=== PATIENT | female | born 1995 | race Caucasian/White ===

== ENCOUNTER → 2016-11-08 | Day surgery (SDC) | payer BC ==
[2016-11-07 09:41] VITALS: Ht 167.6 cm; Wt 72.7 kg
[~2016-11-08] VITALS: Ht 167.6 cm; Wt 72.7 kg
[~2016-11-08] MED LIST: ALBU18002 INH; BCPILLS PO; FLUT0.15 NAE; FLVHFA110 INH; LEVO-371 PO; LIDOCAINE HCL 2% 2 ML VIAL (20MG/ML) ONE; ONDA4TAB46 PO; PROPOFOL IV EMULSION 10 MG/ML 20 ML VIAL IV ONE; QUERTAB PO; SERT50TA PO; SODIUM CHLORIDE 0.9% 500ML 500 ML IV ONE
[2016-11-08 11:14] VITALS: TEMP 37.1
--- NOTE | 2016-11-08 11:21 | Endo History and Physical ---
History & Physical Date of Service: Nov 08, 2016. Chief Complaint: Dysphagia, EOS Referring Physician: Nancie Molina History of Present Illness 21 yo CF who presents for EGD secondary to dysphagia and Eosinophilic esophagitis. Past Surgical History Hx Cardiac Surgery: No Hx Internal Defibrillator: No Hx Pacemaker: No Hx Abdominal Surgery: No Hx of Implantable Prosthesis: No Hx Post-Op Nausea and Vomiting: No Hx Cancer Surgery: No Hx Thoracic Surgery: No Hx Orthopedic: Yes (RT ACL REPAIR) Hx Urinary Tract Surgery: No Family History None Social History Smoking Status: Never Smoker Hx Substance Use: No Hx Alcohol Use: Yes (1-2X/WEEK) Allergies Coded Allergies: NO KNOWN DRUG ALLERGIES (Verified Allergy, Unknown, ., 11/07/16) Uncoded Allergies: SEASONAL (Allergy, Unknown, congestion/watery eyes, 06/23/14) Current Medications Reported Home Medications Medications Dose Route/Sig Max Daily Dose Days Date Category Flovent Hfa (Fluticasone Propionate) 120 Puffs/99359 Mcg Aero 2 Puffs INH BID 11/07/16 Reported Proair Respiclick (Albuterol Sulfate) 108 Mcg/Act Aer 2 Puffs INH Q4H PRN 08/29/16 Reported Quercetin 50 Mg Tab 1 Tab PO QAM 08/29/16 Reported Flonase Allergy Relief (Fluticasone Propionate (Nasal)) 50 Mcg/Act Spr 1 [place] JOSEPH QAM 08/29/16 Reported Control Pills (Miscellaneous) Tab 1 Tab PO QAM 06/23/14 Reported Zoloft (Sertraline Hcl) 50 Mg Tab 50 Mg PO QAM 06/23/14 Reported Xyzal (Levocetirizine Dihydrochloride) 5 Mg Tab 5 Mg PO QAM 06/23/14 Reported Vital Signs Weight (Kilograms): 72.73 Height (Feet): 5 Height (Inches): 6 Date Time Temp Pulse Resp B/P Pulse Ox O2 Delivery O2 Flow Rate FiO2 11/08/16 11:14 37.1 81 18 117/74 97 Room Air Physical Exam General Appearance: WD/WN, no apparent distress Respiratory/Chest: Auscultation: breath sounds normal Cardiovascular: Heart Auscultation: RRR Abdomen: Bowel Sounds: normal Inspection & Palpation: soft, non-distended, no tenderness, guarding & rebound Assessment and Plan Assessment: 21 yo CF who presents for EGD secondary to dysphagia and Eosinophilic esophagitis. Plan: Proceed with EGD
--- NOTE | 2016-11-08 12:02 | GI REPORT ---
Procedure Date: 11/08/2016 11:32 AM Procedure: Upper GI endoscopy Indications: Dysphagia, Follow-up of eosinophilic esophagitis Medicines: Monitored Anesthesia Care Complications: No immediate complications. Estimated Blood Loss: Estimated blood loss: none. Procedure: Pre-Anesthesia Assessment: - Prior to the procedure, a History and Physical was performed, and patient medications and allergies were reviewed. The patient's tolerance of previous anesthesia was also reviewed. The risks and benefits of the procedure and the sedation options and risks were discussed with the patient. All questions were answered, and informed consent was obtained. Prior Anticoagulants: The patient has taken no previous anticoagulant or antiplatelet agents. ASA Grade Assessment: I - A normal, healthy patient. After reviewing the risks and benefits, the patient was deemed in satisfactory condition to undergo the procedure. After obtaining informed consent, the endoscope was passed under direct vision. Throughout the procedure, the patient's blood pressure, pulse, and oxygen saturations were monitored continuously. The scope was introduced through the mouth, and advanced to the second part of duodenum. The upper GI endoscopy was accomplished without difficulty. The patient tolerated the procedure well. Findings: LA Grade B (one or more mucosal breaks greater than 5 mm, not extending between the tops of two mucosal folds) esophagitis with no bleeding was found. Biopsies were taken with a cold forceps for histology. Biopsies were taken with a cold forceps in the middle third of the esophagus for histology. The stomach was normal. The examined duodenum was normal. Impression: - LA Grade B reflux esophagitis. Biopsied. - Normal stomach. - Normal examined duodenum. - Biopsies were taken with a cold forceps for histology in the middle third of the esophagus. Recommendation: - Resume previous diet. - Continue present medications. - Await pathology results. - Return to GI clinic as previously scheduled. Navin Turcios DO 11/08/2016 12:00:58 PM This report has been signed electronically. Note Initiated On: 11/08/2016 11:32 AM I attest to the content of the Intraoperative Record and orders documented therein, exceptions below
--- NOTE | 2016-11-08 12:05 | Discharge Instructions ---
Endoscopy Patient Instructions Date / Procedure(s) Performed Nov 08, 2016. EGD Allergy Information Coded Allergies: NO KNOWN DRUG ALLERGIES (Verified Allergy, Unknown, ., 11/07/16) Uncoded Allergies: SEASONAL (Allergy, Unknown, congestion/watery eyes, 06/23/14) Discharge Date / Findings Nov 08, 2016. Reflux esophagitis s/p biopsies Mid-esophageal biopsies Medication Instructions Restart Stopped Medication(s): OK to resume all medications today as prescribed Start Lansoprazole 30mg by mouth twice daily 1/2 hour prior to breakfast and dinner. Reported Home Medications Medications Dose Route/Sig Max Daily Dose Days Date Category Flovent Hfa (Fluticasone Propionate) 120 Puffs/15543 Mcg Aero 2 Puffs INH BID 11/07/16 Reported Proair Respiclick (Albuterol Sulfate) 108 Mcg/Act Aer 2 Puffs INH Q4H PRN 08/29/16 Reported Quercetin 50 Mg Tab 1 Tab PO QAM 08/29/16 Reported Flonase Allergy Relief (Fluticasone Propionate (Nasal)) 50 Mcg/Act Spr 1 [place] JOSEPH QAM 08/29/16 Reported Control Pills (Miscellaneous) Tab 1 Tab PO QAM 06/23/14 Reported Zoloft (Sertraline Hcl) 50 Mg Tab 50 Mg PO QAM 06/23/14 Reported Xyzal (Levocetirizine Dihydrochloride) 5 Mg Tab 5 Mg PO QAM 06/23/14 Reported Provider Instructions Activity Restrictions - No exercising or heavy lifting for 24 hours. - Do not drink alcohol the day of the procedure. - Do not drive a car or operate machinery until the day after the procedure. - Do not make any important decisions or sign important papers in 24 hours after the procedure. Following Day: - Return to full activity which may include returning to work/school. Diet Start your diet with liquids and light foods (jello, soup, juice, toast). Then eat your usual diet if not nauseated. Treatment For Common After Affects For mild abdominal pain, bloating, or excessive gas: - Rest - Eat lightly - Lie on right side Follow-Up Information Follow-up with Nancie Molina as scheduled Anesthesia Information What You Should Know You have had a procedure that required some medicine to reduce anxiety and discomfort. This treatment is called moderate sedation. After receiving the treatment, you may be sleepy, but you will be able to breathe on your own. The effects of the treatment may last for several hours. Follow these instructions along with Activity/Diet recommendations noted above: * Do NOT do anything where dizziness or clumsiness would be dangerous. * Rest quietly at home today, then you can be up and about tomorrow. * Have a responsible person stay with you the rest of today. * You may have had an I.V. today. If so, you may take the dressing off later today. Recommendations Call your doctor if: * Trouble breathing * Continuous vomiting for more than 24 hours * Temperature above 101 degrees * Severe abdominal pain or bloating * Pain not relieved by pain medicine ordered * There is increased drainage or redness from any incision * A large amount of rectal bleeding greater than 2-3 tablespoons. (If you had a polyp/s removed or have hemorrhoids, a small amount of blood - from the rectum is to be expected.) * You have any unanswered questions or concerns. IN THE EVENT OF A SERIOUS EMERGENCY, GO TO THE NEAREST EMERGENCY ROOM Your discharge instructions were prepared by provider Navin Turcios. Patient Instructions Signature Page Katie Cotton Patient (or Guardian) Signature/Date: I have read and understand the instructions given to me by my caregivers. Caregiver/RN/Doctor Signature/Date: The above-named patient and/or guardian has received patient instructions on this date. + Original Patient Signature Page (only) stays with chart. Please make copy for patient.
[2016-11-08 12:25] VITALS: BP 125/87; PULSE 83; O2SAT 97
--- NOTE | 2016-11-08 12:35 | Anesthesiology Progress Note ---
Anesthesia Post Op Note Date & Time Nov 08, 2016 at 12:36 Vital Signs Pain Intensity: 0 Vital Signs Past 12 Hours Date Time Temp Pulse Resp B/P Pulse Ox O2 Delivery O2 Flow Rate FiO2 11/08/16 12:25 83 18 125/87 97 Room Air 11/08/16 12:10 74 18 118/73 97 Room Air 11/08/16 11:55 91 18 117/82 97 Room Air 11/08/16 11:14 37.1 81 18 117/74 97 Room Air Notes Mental Status: alert / awake / arousable, participated in evaluation Pt Amnestic to Procedure: Yes Nausea / Vomiting: adequately controlled Pain: adequately controlled Airway Patency, RR, SpO2: stable & adequate BP & HR: stable & adequate Hydration State: stable & adequate Anesthetic Complications: no major complications apparent
== END | disposition home or self-care (01) ==
LOC: C.GI 10:49
PROVIDERS: ATTEND Internal Medicine
DX: K21.0 Gastro-esophageal reflux disease with esophagitis (principal); K20.0 Eosinophilic esophagitis; Z98.890 Other specified postprocedural states

== ENCOUNTER 2016-11-24 12:21 | Emergency (ER) | payer BC ==
[~2016-11-24] VITALS: Ht 165.1 cm; Wt 75.2 kg
[~2016-11-24 12:21] MED LIST changes: -LIDOCAINE HCL 2% 2 ML VIAL (20MG/ML) ONE; -ONDA4TAB46 PO; -PROPOFOL IV EMULSION 10 MG/ML 20 ML VIAL IV ONE; -SODIUM CHLORIDE 0.9% 500ML 500 ML IV ONE
[2016-11-24 12:26] VITALS: TEMP 36.9; Ht 165.1 cm; Wt 75.2 kg
[2016-11-24] MEDS ORDERED: ONDANSETRON INJ 2 MG/ML 2 ML VIAL IV STA (13:04)
[2016-11-24 13:11] LABS: BASO % 0.2 %; BASO ABS # 0.02 K/uL (0-0.2); COMPLETE YES; EOS % 1.4 %; HEMATOCRIT 40.9 % (37-47); IG% 0.3 %; LYMPH % 29.2 %; LYMPH ABS # 2.56 K/uL (1.2-3.4); MEAN CELL VOLUME 92.3 fL (80-100); MEAN CORPUSCULAR HEMOGLOBIN 31.4 pg (25-34); MEAN PLATELET VOLUME 10.1 fL (7.4-10.4); MONO % 7.5 %; NEUT % 61.4 %; PLATELET COUNT 289 K/uL (130-400); RED BLOOD COUNT 4.43 M/uL (4.2-5.4); WHITE BLOOD COUNT 8.76 K/uL (4.8-10.8)
[2016-11-24 13:31] LABS: BUN/CREATININE RATIO 13.5 (10-20); CALCIUM 9.5 mg/dl (8.5-10.1); POTASSIUM 4.1 mmol/L (3.5-5.1)
[2016-11-24 13:34] LABS: ALB/GLOB RATIO 0.9 (0.9-2)
[2016-11-24] MEDS: ONDANSETRON INJ 2 MG/ML 2 ML VIAL IV STA (14:12)
[2016-11-24] MEDS ORDERED: SODIUM CHLORIDE 0.9% 1000ML 1,000 ML IV ONE (14:15)
[2016-11-24] MEDS ORDERED: GI COCKTAIL PO ONE (14:15)
[2016-11-24] MEDS ORDERED: LIDOCAINE HCL 2% VISC SOLN 20 ML UDC ONE (14:42)
[2016-11-24] MEDS ORDERED: ALUMINUM/MAGNESIUM SUSP 30 ML UDC ONE (14:42)
[2016-11-24] MEDS ORDERED: ONDA4TAB46 PO (14:49)
[2016-11-24 14:57] LABS: URINE APPEARANCE CLOUDY (CLEAR); URINE BILIRUBIN NEG (NEG); URINE COLOR DK YELLOW; URINE EPITHELIAL CELL AUTO >30 /lpf (0-5); URINE NITRITE NEG (NEG); URINE SPECIFIC GRAVITY 1.029 (1.000-1.030); UROBILINOGEN NEG (NEG); ZZUR CULT IF INDIC CLEAN CATCH YES
[2016-11-24 15:02] LABS: MANUAL MICROSCOPIC REQUIRED? NO; REVIEW REQ? YES
[2016-11-24 16:11] VITALS: BP 124/76; PULSE 84; O2SAT 98
--- NOTE | 2016-11-27 07:18 | EMERGENCY ROOM VISIT NOTE ---
ED Visit Note First contact with patient: 13:53 Chief Complaint: Vomiting. History of Present Illness: Ms. Cotton is a 21-year-old white female who ambulates into the ED accompanied by male friend complaining of nausea and vomiting as concern for possible dehydration. Historically patient reports she has a history of acid reflux that has not been well controlled by trials of multiple medications from her platform attendant. Patient reports approximately 24 days ago she just became nauseated and started to vomit. She reports since that time she has been continuously nauseated and has vomited approximately 18 times. Multiple other GI medications without relief of her discomfort. She feels this is possibly related to her PPI use. Her nausea/vomiting worsens when she attempts to eat or drink. She has not identified any alleviating factors. And she denies any associated symptoms including fevers, chills, sweats, skin eruptions, skin color changes, headache, dizziness, lightheadedness, recent head trauma, neck pain, back pain, upper respiratory tract symptoms, chest pain, shortness of breath, abdominal pain, diarrhea, constipation, rectal bleeding, black/tarry stools, urinary symptoms, flank pain. Review of Systems: As noted above in history of present illness. All body systems were reviewed and found to be negative as noted above. Past Medical History: As previously noted and asthma. Current Medications: Medications Dose Route/Sig Max Daily Dose Days Date Category Zofran (Ondansetron HCl) 4 Mg Tab 4 Mg PO PRN 11/24/16 Reported Flovent Hfa (Fluticasone Propionate) 120 Puffs/25760 Mcg Aero 2 Puffs INH BID 11/07/16 Reported Proair Respiclick (Albuterol Sulfate) 108 Mcg/Act Aer 2 Puffs INH Q4H PRN 08/29/16 Reported Quercetin 50 Mg Tab 1 Tab PO QAM 08/29/16 Reported Flonase Allergy Relief (Fluticasone Propionate (Nasal)) 50 Mcg/Act Spr 1 [place] JOSEPH QAM 08/29/16 Reported Control Pills (Miscellaneous) Tab 1 Tab PO QAM 06/23/14 Reported Zoloft (Sertraline Hcl) 50 Mg Tab 50 Mg PO QAM 06/23/14 Reported Xyzal (Levocetirizine Dihydrochloride) 5 Mg Tab 5 Mg PO QAM 06/23/14 Reported Allergies to Medications: Patient denies. Social History: Patient is University student; she feels safe in her home environment; she denies tobacco use. Physical Examination: Vital Signs: Date Time Temp Pulse Resp B/P Pulse Ox O2 Delivery O2 Flow Rate FiO2 11/24/16 16:11 84 16 124/76 98 Room Air 11/24/16 14:24 63 20 108/71 99 11/24/16 12:26 36.9 85 18 121/84 96 Room Air GENERAL: 21-year-old female in mild distress due to pain, nontoxic-appearing, afebrile and hemodynamically stable. NEUROLOGICAL: Awake, alert and oriented to person, place and time. Answering questions appropriately and following commands. Normal gait. Good hand eye coordination. No focal motor sensory deficits. SKIN: Warm, dry and pink. No soft tissue eruptions or trauma noted. HEENT: Atraumatic and normocephalic. PERRL. Sclera white and conjunctiva pink. No drainage from naris. Oral cavity moist and pink. Pharynx is nonerythematous or edematous. Speech normal. No lymphadenopathy. Trachea midline. No jugular venous distention. BACK: No tenderness over the bony spine. No CVA tenderness. THORAX: Lungs sounds are clear to auscultation and equal bilaterally with symmetrical chest wall. No wheezing, rales or rhonchi. No crepitus, tenderness , subcutaneous air or deformities noted. HEART: Regular rate and rhythm. No gallops, rubs or murmurs are appreciated. ABDOMEN: Flat, soft and nontender. Positive bowel sounds in all quadrants. No guarding, rigidity or organomegaly. EXTREMITIES: Moves all extremities well on command and with purpose. All distal neurovascular statuses are intact and equal bilaterally. ED Course: Patient is assessed as noted above. Laboratory Testing: Test 11/24/16 13:00 11/24/16 14:22 Range/Units White Blood Count 8.76 4.8-10.8 K/uL Red Blood Count 4.43 4.2-5.4 M/uL Hemoglobin 13.9 12.0-16.0 g/dL Hematocrit 40.9 37-47 % Mean Corpuscular Volume 92.3 80-100 fL Mean Corpuscular Hemoglobin 31.4 25-34 pg Mean Corpuscular Hemoglobin Concent 34.0 32-36 g/dl Platelet Count 289 130-400 K/uL Mean Platelet Volume 10.1 7.4-10.4 fL Neutrophils (%) (Auto) 61.4 % Lymphocytes (%) (Auto) 29.2 % Monocytes (%) (Auto) 7.5 % Eosinophils (%) (Auto) 1.4 % Basophils (%) (Auto) 0.2 % Neutrophils # (Auto) 5.37 1.4-6.5 K/uL Lymphocytes # (Auto) 2.56 1.2-3.4 K/uL Monocytes # (Auto) 0.66 0.11-0.59 K/uL Eosinophils # (Auto) 0.12 0-0.5 K/uL Basophils # (Auto) 0.02 0-0.2 K/uL RDW Standard Deviation 43.1 36.4-46.3 fL RDW Coefficient of Variation 12.6 11.5-14.5 % Immature Granulocyte % (Auto) 0.3 % Immature Granulocyte # (Auto) 0.03 0.00-0.02 K/uL Sodium Level 142 136-145 mmol/L Potassium Level 4.1 3.5-5.1 mmol/L Chloride Level 109 98-107 mmol/L Carbon Dioxide Level 23 21-32 mmol/L Anion Gap 10.0 3-11 mmol/L Blood Urea Nitrogen 14 7-18 mg/dl Creatinine 1.00 0.60-1.20 mg/dl Est Creatinine Clear Calc Drug Dose 90.3 ml/min Estimated GFR () 93.3 Estimated GFR (Non- 80.5 BUN/Creatinine Ratio 13.5 10-20 Random Glucose 71 70-99 mg/dl Calcium Level 9.5 8.5-10.1 mg/dl Total Bilirubin 1.4 0.2-1 mg/dl Aspartate Amino Transf (AST/SGOT) 23 15-37 U/L Alanine Aminotransferase (ALT/SGPT) 22 12-78 U/L Alkaline Phosphatase 44 45-117 U/L Total Protein 7.6 6.4-8.2 gm/dl Albumin 3.7 3.4-5.0 gm/dl Globulin 3.9 2.5-4.0 gm/dl Albumin/Globulin Ratio 0.9 0.9-2 Lipase 189 73-393 U/L Urine Color DK YELLOW Urine Appearance CLOUDY CLEAR Urine pH 7.0 4.5-7.5 Urine Specific [place] 1.029 1.000-1.030 Urine Protein NEG NEG Urine Glucose (UA) NEG NEG Urine Ketones TRACE NEG Urine Occult Blood 3+ NEG Urine Nitrite NEG NEG Urine Bilirubin NEG NEG Urine Urobilinogen NEG NEG Urine Leukocyte Esterase MODERATE NEG Urine WBC (Auto) 10-30 0-5 /hpf Urine RBC (Auto) 0-4 0-4 /hpf Urine Hyaline Casts (Auto) 0 0-5 /lpf Urine Epithelial Cells (Auto) >30 0-5 /lpf Urine Bacteria (Auto) 2+ NEG Urine Pathogenic Casts 0 /lpf Urine Culture: Pending. Patient was hydrated with 2 L of normal saline, she received a total of 8 mg of Zofran IV for nausea and a GI cocktail by mouth. Patient was reassessed multiple times during her stay in the emergency department. I did have a lengthy conversation with the patient regarding a possible hospital observation stay and she did not feel this was necessary. Patient was trialed on juice and crackers. Patient's case was reviewed with Dr. Rosenberg; we agreed on diagnostic approach, treatment, disposition and plan. Patient was educated about tonight's findings and instructed on her treatment plan; she verbalized understanding and agreement with this plan. Clinical Impression: Vomiting. Decision-Making: Initially my differential diagnosis I considered closed head injury, pneumonia, gastritis, bowel obstruction, urinary tract infection, and other causes. Disposition: Patient discharged home in stable condition accompanied by her boyfriend; prior to departure she reported she was still slightly nauseated but was feeling better. Plan: Patient was encouraged to continue her current GI medications and antinausea medications as prescribed by her platform attendant. Patient was encouraged to stay well-hydrated with increased clear fluids. Patient encouraged to bland diet avoid stomach irritants. Patient was encouraged to try to follow-up with her gastroenterology for recheck in 2-3 days. Patient was encouraged return ED for worsening vomiting, fevers, bloody vomitus or any new/concerning symptoms.
--- NOTE | 2016-11-28 11:15 | Pharmacy Progress Note ---
ED Pharmacist Culture FollowUp Date of Service: Nov 28, 2016. Patient seen in the ER on 11/24/16 for NV and concern for dehydration. Patient denied urinary symptoms, denied flank pain, denied fever or chills, no abdominal pain reported No leukocytosis noted on labs, neutrophil # also WNL UA contained > 30 epis Given lack of urinary symptoms and UA that was likely contaminated (high count of epis and more than 1 organism growing in urine cx (E coli + CoN Staph, not saprophytic) - would not treat this patient with antibiotics. No action required at this time.
== END 2016-11-24 16:12 | disposition home or self-care (01) ==
LOC: C.EDB 12:22 → C.EDC 16:12
DX: R11.2 Nausea with vomiting, unspecified (principal); K21.9 Gastro-esophageal reflux disease without esophagitis; J45.909 Unspecified asthma, uncomplicated; Z79.3 Long term (current) use of hormonal contraceptives; Z79.899 Other long term (current) drug therapy